=== PATIENT | male | born 2005 | race Caucasian/White ===

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

== ENCOUNTER 2024-09-04 13:53 | Emergency (ER) | payer OTHER ==
[~2024-09-04] VITALS: Ht 177.8 cm; Wt 56.7 kg
[~2024-09-04 13:53] MED LIST changes: +CYCL10 PO; +CYCLOBENZAPRINE5 MG PO
[2024-09-04 14:14] VITALS: BP 146/99
[2024-09-04] MEDS ORDERED: IBUP800 PO (14:19)
== END 2024-09-04 14:22 | disposition home or self-care (01) ==
LOC: ER 13:53
DX: S16.1XXA Strain of muscle, fascia and tendon at neck level, initial encounter (principal); S00.81XA Abrasion of other part of head, initial encounter; V19.9XXA Pedal cyclist (driver) (passenger) injured in unspecified traffic accident, initial encounter
CPT/HCPCS: 99283